=== PATIENT | female | born 1995 | race Caucasian/White ===

== ENCOUNTER 2025-09-11 19:58 | Emergency (ER) | payer OTHER ==
[~2025-09-11] VITALS: Ht 165.1 cm; Wt 73.9 kg
[2025-09-11] MEDS ORDERED: IBUP-1490 PO (22:02)
[2025-09-11] MEDS ORDERED: METH-647 PO (22:02)
[2025-09-11] MEDS ORDERED: LIDO30AD10 TP (22:02)
[2025-09-11] MEDS ORDERED: KETOROLAC TROMETHAMINE 15 MG/ML VIAL ONE (22:07)
[2025-09-11] MEDS: KETOROLAC TROMETHAMINE 15 MG/ML VIAL IM ONE (22:10)
[2025-09-11] MEDS ORDERED: HYDROCODONE/APAP 5/325MG TABLET ONE (23:58)
[2025-09-12] MEDS: HYDROCODONE/APAP 5/325MG TABLET PO ONE
[2025-09-12 02:58] VITALS: BP 114/75; TEMP 97; O2SAT 100
== END 2025-09-12 02:58 | disposition home or self-care (01) ==
LOC: ER 20:03
DX: M25.551 Pain in right hip (principal); M25.561 Pain in right knee; R07.81 Pleurodynia; F32.A Depression, unspecified; R51.9 Headache, unspecified; V89.2XXA Person injured in unspecified motor-vehicle accident, traffic, initial encounter; Y93.89 Activity, other specified; Y92.410 Unspecified street and highway as the place of occurrence of the external cause; Y99.8 Other external cause status
CPT/HCPCS: 99285; 70450; 96372; 73090; 73502; 73564; 71100; J1885